=== PATIENT | male | born 2000 | race Caucasian/White ===

== ENCOUNTER 2024-05-31 04:50 | Emergency (ER) | payer MEDICAID, SELFPAY ==
[2024-05-31 04:55] VITALS: BP 149/109; PULSE 77; RESP 20; TEMP 36.5; O2SAT 99; BMI 28.2
--- NOTE | 2024-05-31 04:59 | CRLHL7_ITS ---
For Patients: As a result of the Century Cures Act, medical imaging exams and procedure reports are released immediately into your electronic medical record. You may view this report before your referring provider. If you have questions, please contact your health care provider. INDICATION: Severe abdominal and epigastric pain. COMPARISON: None. TECHNIQUE: CT of the abdomen and pelvis with intravenous contrast. Multiplanar axial, coronal, and sagittal reformats were reconstructed. Contrast: 100 mL Isovue 370. FINDINGS: Lung bases: Normal. Liver: Normal. No mass. Gallbladder and bile ducts: Normal gallbladder. No bile duct dilation. Pancreas: Normal. Spleen: Normal. Adrenal glands: Normal. Kidneys: Normal parenchyma. No cyst or solid mass. No calculi. No urinary tract dilation. Urinary bladder: Empty. Pelvis: No cyst or mass. Vessels: Normal. Bowel: No dilated or inflamed bowel. Normal appendix. Moderate stool burden. Lymph nodes: No adenopathy. Peritoneum: No ascites. Abdominal wall: No hernia. Bones: No fractures. No focal worrisome bone lesions. IMPRESSION: Normal CT of the abdomen and pelvis. Please note that all CT scans at this facility use dose modulation, iterative reconstruction, and/or weight-based dosing when appropriate to reduce radiation dose to as low as reasonably achievable. Dictated by Ely Walker MD @ 05/31/2024 5:43:50 AM (Electronically Signed)
--- NOTE | 2024-05-31 05:02 | ED_ITS ---
HPI - Abdominal Pain General Date Seen: 05/31/24 Chief Complaint: Abdominal Pain Stated Complaint: abdominal pain Time Seen by Provider: 05/31/24 04:54 Source: patient and RN notes reviewed Mode of arrival: ambulatory Limitations: no limitations History of Present Illness HPI narrative: 3-year-old previously healthy gentleman who presents here with acute onset of epigastric pain. This occurred approximately 430 and will come up from sleep. There is no radiation to his back he says it is to primarily in his epigastric region taking a deep breath in makes it worse. He has not vomited but does feel slightly nauseous. Was a little bit constipated earlier yesterday, but normally has no problem with his bowel movements. Did not take any medications for this, came promptly to the hospital. Is not taking any chronic medications not even [id number] medications no. Denies use of alcohol or drugs. No previous history of abdominal operations are chronic abdominal pain. Denies any chest discomfort, shortness of breath, sore throat, blood in his stools, dysuria frequency, back discomfort, fevers chills or sweats. No family history of abdominal pain, or chronic illnesses Related Data Home Medications ?Medication ?Instructions ?Recorded ?Confirmed No Known Home Medications 05/31/24 05/31/24 Allergies Allergy/AdvReac Type Severity Reaction Status Date / Time No Known Drug Allergies Allergy Verified 05/31/24 05:32 Review of Systems Status of ROS Reports: 10 or more systems reviewed and unremarkable except as noted in History and below [facility] Medical History (Updated 05/31/24 @ 05:57 by Sushil Borges MD) No significant past medical history Surgical History (Updated 05/31/24 @ 05:10 by Kurt Herrmann RN) No significant past surgical history Social History Smoking Status: Never smoker Second hand tobacco smoke exposure: No How often do you have a drink containing alcohol: never AUDIT-C Alcohol total score: 0 Non-prescribed substance use: denies use Exam Narrative: Exam Narrative: I find him in room 5, he is in some moderate distress, complaining of pain in his upper abdominal region, oropharynx is normal, no scleral icterus TMs normal, neck is supple full range of motion, chest is clear bilaterally with no wheezing crackles noted heart sounds are normal, no clicks murmurs or gallops his abdomen reveals tenderness in the abdominal region, and I can not really examine him without him being in pain. Bowel sounds appear are quiet. I do not detect CVA and tenderness, I do not detect evidence of a hernia. Moves all extremities independently well, no evidence of any rashes, neurologically intact and upper lower extremities. Const: Vital Signs, click to edit/add: Vital Signs - 24 hr 05/31/24 04:55 05/31/24 05:08 Temperature 97.7 F Pulse Rate [Pulse Oximeter] 77 Respiratory Rate 20 Blood Pressure [Ri ght Upper Arm] 149/109 H Pulse Oximetry 99 99 Oxygen Delivery Me thod Room Air Documenting provider has reviewed patient's vital signs: yes Course Course ED Course: His pain was improved but he is still having colicky pain, I discussed with him that his CT scan showed no evidence of acute abnormality, except that he has a rather large stool burden, this consistent with constipation wears pain is is right across the transverse colon where the majority of his discomfort is. Would recommend given that his UA showed a high specific gravity, he needs to drink more water as this is the 1. Problem I find with people with constipation, recommend that he get some MiraLax to help this also. We went over signs and symptoms of worsening condition he should follow-up with this occur. I did think about whether not this could be related to gastritis, but there is no evidence of any significant thickening of his stomach, and definitely no evidence of free air to suggest perforation no evidence of a any issue with the gallbladder, no biliary dilatation. His LFTs were all normal as is white count. Vital Signs Vital signs: Initial Vital Signs Temperature 97.7 F 05/31/24 04:55 Temperature Source Temporal Artery Scan 05/31/24 04:55 Pulse Rate 77 05/31/24 04:55 Respiratory Rate 20 05/31/24 04:55 Blood Pressure 149/109 H 05/31/24 04:55 Blood Pressure Mean 122 H 05/31/24 04:55 Blood Pressure Position Sitting 05/31/24 04:55 Pulse Oximetry 99 05/31/24 04:55 Oxygen Delivery Method Room Air 05/31/24 04:55 Vital Signs Temperature 97.7 F 05/31/24 04:55 Pulse Rate 77 05/31/24 04:55 Respiratory Rate 20 05/31/24 04:55 Blood Pressure 149/109 H 05/31/24 04:55 Pulse Oximetry 99 05/31/24 04:55 Oxygen Delivery Method Room Air 05/31/24 04:55 Temperature 97.7 F 05/31/24 04:55 Pulse Rate 77 05/31/24 04:55 Respiratory Rate 20 05/31/24 04:55 Blood Pressure 149/109 H 05/31/24 04:55 Pulse Oximetry 99 05/31/24 05:08 Oxygen Delivery Method Room Air 05/31/24 04:55 Medications Administered Medications: Discontinued Medications Generic Name Dose Route Start Last Admin Trade Name Freq PRN Reason Stop Dose Admin Hydromorphone HCl 0.5 mg 05/31/24 04:59 05/31/24 05:06 Hydromorphone 0.5 Mg/0.5 Ml Inj IVP 05/31/24 05:00 0.5 mg ONCE ONE Administration Sodium Chloride 1,000 mls @ 1,000 mls/hr 05/31/24 05:00 05/31/24 05:05 0.9 % Sodium Chloride 1000 Ml IV 05/31/24 05:59 1,000 mls/hr .Q1H PANCHO Administration Ondansetron HCl 4 mg 05/31/24 04:59 05/31/24 05:05 Ondansetron 2 Mg/Ml Inj IVP 05/31/24 05:00 4 mg ONCE ONE Administration MDM - Abdominal Pain MDM Narrative Medical decision making narrative: During this evaluation of this patient I considered multiple differential diagnosis is which included the life-threatening such as appendicitis, aortic aneurysm, mesenteric ischemia, bowel perforation, volvulus, and bowel obstruction. Other differential diagnosis is include but are not limited to cholecystitis, pancreatitis, hepatitis, gastritis, GERD, diverticulitis, peptic ulcer disease, pyelonephritis/UTI, renal colic/stone, testicular torsion as well as other acute scrotal processes, inflammatory bowel disease, as well as other etiologies Medical Records Attestation: I reviewed the patient's medical records. Medical records narrative: Review of his chart shows he has not been here since 2021, he was here with gastroenteritis. Lab Data Attestation: I reviewed the patient's lab results. Labs: Lab Results 05/31/24 05/31/24 Range/Units 05:00 05:02 WBC 7.35 (4.50-11.00) K/uL RBC 5.21 (4.30-5.90) m/uL Hgb 16.1 (13.5-17.5) gm/dL Hct 47.0 (37.0-53.0) % MCV 90 (80-100) fL MCH 31 (26-34) pg MCHC 34 (32-36) gm/dL RDW Coeff of Fannie 12.2 (11.5-15.5) % Plt Count 214 (140-440) K/uL Neut % (Auto) 30.9 L (42.0-72.0) % Lymph % (Auto) 59.6 H (20-44) % Dade % (Auto) 6.9 (0.0-11.0) % Eos % (Auto) 2.3 (0.0-7.0) % Baso % (Auto) 0.3 (0.0-3.0) % Neut # (Auto) 2.30 (1.7-7.0) K/uL Lymph # (Auto) 4.40 H (0.90-2.90) K/uL Dade # (Auto) 0.50 (0.00-0.90) K/UL Eos # (Auto) 0.17 (0.00-0.50) K/uL Baso # (Auto) 0.02 (0.00-0.30) K/uL Abs Immat Gran (auto) 0.00 (0.00-0.30) K/uL Imm/Tot Granulo (auto) 0.0 % Sodium 139 (135-149) mmol/L Potassium 3.8 (3.6-5.1) mmol/L Chloride 106 (96-114) mmol/L Carbon Dioxide 23 (20-32) mmol/L Anion Gap 10 (7-15) mEq/L BUN 17 (5-24) mg/dL Creatinine 1.0 (0.5-1.5) mg/dL Estimated Creat Clear 109.25 Estimated GFR 110 ml/min Glucose 114 (60-115) mg/dL Lactate 1.4 (0.5-1.9) mmol/L Calcium 9.4 (8.4-10.6) mg/dL Total Bilirubin 0.4 (0.1-1.5) mg/dL Direct Bilirubin 0.2 (0.0-0.5) mg/dL AST 27 (12-35) U/L ALT 20 (4-50) U/L Alkaline Phosphatase 96 (40-150) U/L C-Reactive Protein < 0.5 L (0.5-1.0) mg/dL Total Protein 7.9 (6.0-8.3) g/dL Albumin 4.7 (3.3-5.0) g/dL Amylase 79 (18-89) U/L Lipase 76 (23-300) U/L Urine Color Yellow (Yellow) Urine Appearance Clear (Clear) Urine pH 6.0 (5.0-8.5) Ur Specific [place] >= 1.030 (1.000-1.030) Urine Protein Trace A (Negative) Urine Glucose (UA) Negative (Negative) Urine Ketones Negative (Negative) Urine Blood Trace-intact A (Negative) Urine Nitrite Negative (Negative) Urine Bilirubin Negative (Negative) Urine Urobilinogen 0.2 (0.2-1.0) Ur Leukocyte Esterase Negative (Negative) Urine RBC 0-2 (0-2) Urine WBC 2-5 (0-5) Ur Squamous Epith Cells Few (None-Few) Urine Bacteria Few A (None) Urine Mucus Moderate A (None) Urine Opiates Screen Negative (Negative) Ur Oxycodone Screen Negative (Negative) Urine Methadone Screen Negative (Negative) Ur Barbiturates Screen Negative (Negative) U Tricyclic Antidepress Negative (Negative) Ur Phencyclidine Scrn Negative (Negative) Ur Amphetamines Screen Negative (Negative) U Methamphetamines Scrn Negative (Negative) U Benzodiazepines Scrn Negative (Negative) Urine Cocaine Screen Negative (Negative) U Marijuana (THC) Screen POSITIVE A (Negative) Ur Drug Screen Comment See Note Imaging Data CT scan - abdomen: Attestation: I have reviewed the pertinent imaging results. My impression: No evidence of abnormality seen. Radiologist's impression: Patient: HARRIETT TAVAREZ Facility:?[facility] Patient ID:?[id number] Site Patient ID:?[id number]. Site :?[id number] Study:?CT-Abdomen/Pelvis w/ 100cc Isovue 370-05/31/2024 5:35:39 AM Ordering Physician:?Jony Ling Final Report: INDICATION: Severe abdominal and epigastric pain. COMPARISON: None. TECHNIQUE: CT of the abdomen and pelvis with intravenous contrast. Multiplanar axial, coronal, and sagittal reformats were reconstructed. Contrast: 100 mL Isovue 370. FINDINGS: Lung bases: Normal. Liver: Normal. No mass. Gallbladder and bile ducts: Normal gallbladder. No bile duct dilation. Pancreas: Normal. Spleen: Normal. Adrenal glands: Normal. Kidneys: Normal parenchyma. No cyst or solid mass. No calculi. No urinary tract dilation. Urinary bladder: Empty. Pelvis: No cyst or mass. Vessels: Normal. Bowel: No dilated or inflamed bowel. Normal appendix. Moderate stool burden. Lymph nodes: No adenopathy. Peritoneum: No ascites. Abdominal wall: No hernia. Bones: No fractures. No focal worrisome bone lesions. IMPRESSION: Normal CT of the abdomen and pelvis. Please note that all CT scans at this facility use dose modulation, iterative reconstruction, and/or weight-based dosing when appropriate to reduce radiation dose to as low as reasonably achievable. Dictated by Ely Wakler MD @ 05/31/2024 5:43:50 AM (Electronic Signature) Discharge Plan Discharge Clinical Impression: Abdominal pain, Constipation Patient Disposition: Home w/ Parent or Adult Condition: Stable Instructions: Constipation (ED), Abdominal Pain (ED) Additional Instructions: Laboratory work was all reassuring no evidence of any liver, elevated white count, or other issue. It certainly seems with here CT that your constipated. The only thing I can tell you is on your urine test that it seems like your down in her fluids a little bit. He did drink more water, and I would use some MiraLax 1 cap full with 20 oz of water, do this twice a day until you get good returns. Return back if worsening pain fevers chills nausea vomiting. Or other issues. Activity Level: Light activity Discharge Diet: Regular Prescriptions: No Action No Known Home Medications Stand Alone Forms: [employer] Info Instructions
[2024-05-31] MEDS: 0.9 % SODIUM CHLORIDE 1000 ml 1,000 ML IV (05:05)
[2024-05-31] MEDS: ONDANSETRON 2 MG/ML inj 4 MG IVP (05:05)
[2024-05-31] MEDS: HYDROmorphone 0.5 mg/0.5 ml inj IVP (05:06)
[2024-05-31 05:08] VITALS: O2SAT 99
[2024-05-31 05:08] LABS: Lactate* 1.4 mmol/L (0.5-1.9)
[2024-05-31 05:09] LABS: Basophils Absolute Auto 0.02 K/uL (0.00-0.30); Basophils Percent Auto 0.3 % (0.0-3.0); Eosinophils Absolute Auto 0.17 K/uL (0.00-0.50); Eosinophils Percent Auto 2.3 % (0.0-7.0); Hemoglobin* 16.1 gm/dL (13.5-17.5); Lymphocytes Percent Auto 59.6 % (20-44); Mean Corpuscular HGB Conc 34 gm/dL (32-36); Mean Corpuscular Hemoglobin 31 pg (26-34); Mean Corpuscular Volume 90 fL (80-100); Monocytes Percent Auto 6.9 % (0.0-11.0); Neutrophils Percent Auto 30.9 % (42.0-72.0); Platelet Count* 214 K/uL (140-440); RDW Coefficient of Variation % 12.2 % (11.5-15.5); Red Blood Count 5.21 m/uL (4.30-5.90); White Blood Count* 7.35 K/uL (4.50-11.00)
[2024-05-31 05:13] LABS: Appearance Urine Clear (Clear); Bilirubin Urine Negative (Negative); Blood Urine Trace-intact (Negative); Color Urine Yellow (Yellow); Glucose Urine Negative (Negative); Ketones Urine Negative (Negative); Leukocyte Esterase Urine Negative (Negative); Nitrite Urine Negative (Negative); Protein Urine Trace (Negative); Specific Gravity Urine >= 1.030 (1.000-1.030); Urobilinogen Urine 0.2 (0.2-1.0)
[2024-05-31 05:21] LABS: Amphetamine Screen Urine Negative (Negative); Barbiturate Screen Urine Negative (Negative); Benzodiazepines Screen Urine Negative (Negative); Cannabinoid Screen Urine POSITIVE (Negative); Cocaine Screen Urine Negative (Negative); Methadone Screen Urine Negative (Negative); Methamphetamines Screen Urine Negative (Negative); Opiate Screen Urine Negative (Negative); Oxycodone Screen Urine Negative (Negative); Phencyclidine Screen Urine Negative (Negative); Tricyclic Antidepressant Urine Negative (Negative)
[2024-05-31 05:23] LABS: Slide Review Reflex No
[2024-05-31 05:24] LABS: Bacteria Urine Few; Mucus Urine Moderate; RBC Urine 0-2 (0-2); Squamous Epithelial Cell Urine Few (None-Few)
[2024-05-31 05:26] LABS: Albumin* 4.7 g/dL (3.3-5.0); Chloride* 106 mmol/L (96-114)
[2024-05-31 05:27] LABS: Potassium* 3.8 mmol/L (3.6-5.1); Sodium* 139 mmol/L (135-149)
[2024-05-31 05:29] LABS: Amylase* 79 U/L (18-89); Est. Creatinine Clearance* 109.25; Estimated Glomerular Filt Rate 110 ml/min
[2024-05-31 05:30] LABS: Alanine Aminotransferase* 20 U/L (4-50); Alkaline Phosphatase* 96 U/L (40-150); Anion Gap 10 mEq/L (7-15); Aspartate Amino Transferase* 27 U/L (12-35); Bilirubin Direct* 0.2 mg/dL (0.0-0.5); Bilirubin Total* 0.4 mg/dL (0.1-1.5); Blood Urea Nitrogen* 17 mg/dL (5-24); Calcium* 9.4 mg/dL (8.4-10.6); Carbon Dioxide* 23 mmol/L (20-32); Glucose* 114 mg/dL (60-115); Lipase* 76 U/L (23-300); Total Protein* 7.9 g/dL (6.0-8.3)
[2024-05-31 05:34] LABS: C Reactive Protein* < 0.5 mg/dL (0.5-1.0)
--- OUTSIDE RECORDS SUMMARY | 2024-05-31 06:00 | XMS_ITS | Clinical Summary ---
Author Organization [place] Address [address] [place] [id number] Care Team Providers Care Retail Helper Name Role Phone Clinic, [facility] Primary Care Provider Allergies No known active allergies Medications No known medications Social History Tobacco Use Types Packs/Day Years Used Date Smoking Tobacco: Never Assessed Adolescent Education Answer Date Record ed Getting School Help Needed Not on file 12/08 Sex and Gender Information Value Date Recorded Sex Assigned at Not on file Legal Sex Male 8:30 PM CDT Gender Identity Not on file Sexual Orientation Not on file Last Filed Vital Signs Vital Sign Reading Time Taken Comments Blood Pressure 137/81 12/09/2023 10:32 PM CDT Pulse 75 12/09/2023 10:32 PM CDT Temperature 36.9 C (98.4 F) 12/09/2023 8:53 PM CDT Respiratory Rate 16 12/09/2023 8:53 PM CDT Oxygen Saturation 98% 12/09/2023 10:32 PM CDT Inhaled Oxygen Concentration - - Weight 86.2 kg (190 lb) 12/09/2023 8:53 PM CDT Height 170.2 cm (5' 7) 12/09/2023 8:53 PM CDT Body Mass Index 29.76 12/09/2023 8:53 PM CDT Plan of Treatment Health Maintenance Due Date Last Done Comments ADVANCE CARE PLANNING 2002 ANNUAL REVIEW OF HM ORDERS 2002 HIV SCREENING 2017 HEPATITIS C SCREENING 2020 YEARLY PREVENTIVE VISIT 03/17/2021 03/17/2020 PHQ-2 (once per calendar year) 2023 COVID-19 Vaccine ( season) 2024 12/26/2020, 11/27/2020 INFLUENZA VACCINE (#1) 2024 0, 05/12/2017, 07/03/2009, Additional history exists DTAP/TDAP/TD IMMUNIZATION (7 - Td or Tdap) 12/13/2024 12/13/2014, 09/23/2007, 03/31/2006, Additional history exists RSV VACCINE (1 - 1-dose 75+ series) 2077 HEPATITIS B IMMUNIZATION Completed 004, 09/02/2003, 06/16/2003, Additional history exists Pneumococcal Vaccine: Pediatrics (0 to 5 Years) and At-Risk Patients (6 to 64 Years) Aged Out 09/02/2003, 06/16/2003, 02/16/2003 No longer eligible based on patient's age to complete this topic HPV IMMUNIZATION Completed 03/17/2020, 12/13/2014 MENINGITIS IMMUNIZATION Completed 03/17/2020, 12/13 RSV MONOCLONAL ANTIBODY Aged Out No l onger eligible based on patient's age to complete this topic Insurance [facility] Care Teams Retail Helper Relationship Specialty Start Date End Date [address] [address] PCP - General 12/09/23
--- OUTSIDE RECORDS SUMMARY | 2024-05-31 06:00 | XMS_ITS | Clinical Summary ---
Author Organization [facility] Address [place], [place] [address] Care Team Providers Care Station Jailer Name Role Phone Pcp, No Primary Care Provider Unavailabl e Allergies No known active allergies Medications Medication Sig Dispensed Refills Start Date End Date Status ibuprofen (ADVIL; MOTRIN) 800 mg tabletIndications:Nelsy le injury, right, initial encounter Take 1 Tablet (800 mg) by mouth 3 times daily if needed for Pain. 60 Tablet 08/18/2022 Active CrutchIndications:Nelsy le injury, right, initial encounter For home use. 2 Each 08/18/2022 Active Active Problems No known active problems Immunizations Name Administration Dates Next Due AMB Influenza, IIV3 (Age >=3 years)(Flu Clinic Only) 06/19/2009 COVID-19 vaccine (Moderna 100mcg/0.5mL) KAYLI CAMPOS 12/26/2020,11/27/2020 DTP 03/31/2006, 4,06/16/2003,02/16 DTaP 09/23/2007,03/31/2006 QHlA-IzeA-ZNY (Pediarix) 09/02/2003,06/16/2003,0 02/16/2003 HIB HbOC (HibTITER) 09/02/2003,06/16/2003,2002 HIB PRP-OMP (PedvaxHIB) 09/02/2003,06/16/2003, HPV 9 (Gardasil 9) 03/17/2020 Hepatitis A (Peds) 03/17/2020,03/31/2006 Hepatitis B (Peds) 09/02/2003,06/16/2003, 003 Human Papilloma Virus Vaccine 12/13/2014 Inactivated Polio Vaccine 09/23/2007,,06/16/2003,02/16 Influenza A (H1N1), Inactivated 07/03/2009,05/26 Influenza A (H1N1), Inactiva gilbert (Age >=3 Years) 07/03/2009 Influenza, IIV3 (Age 6-35 mos) 06/19/2009 Influenza, IIV4 03/17/2020,05/12/2017 MENINGOCOCCAL VACCINE 2 VIAL [id number] (MENVEO) 03/17/2020,12/13/2014 MMR 09/23/2007,10/14/2003,09/02/2003 Pneumococcal conj 7-Valent (Prevnar 7) 4,06/16/2003,02/16/2003 Tdap 12/13/2014 Varicella Vaccine 09/23/2007,10/14/2003 Family History Medical History Relation Name Comments Cancer Other uterus, materna l great gm Relation Name Status Comments Other Social History Tobacco Use Types Packs/Day Years Used Date Smoking Tobacco: Never Smokeless Tobacco: Never Tobacco Cessation:Counseling Given: Yes Alcohol Use Standard Drinks/Week Comments No 0 (1 standard drink = 0.6 oz pur e alcohol) PHQ-2 Answer Date Recorded PHQ-2 TOTAL SCORE 0 03/17/2020 Social Connections Answer Date Recorded Frequency of Communication with Friends and Fami ly Not on file 06/28/2021 Financial Resource Strain Answer Date R ecorded Difficulty of Paying Living Expenses Not on file 06/28/2021 Difficulty of Paying Living Expenses Not on file 06/28/2021 Sex and Gender Information Value Date Recorded Sex Assigned at Not on file Gender Identity Not on file Sexual Orientation Not on file Obstetrics History Last Filed Vital Signs Vital Sign Reading Time Taken Comments Blood Pressure 118/73 08/18/2022 7:21 PM MARKET RISK MANAGER Pulse 71 08/18/2022 7:21 PM MARKET RISK MANAGER Temperature 36.6 C (97.9 F) 08/18/2022 7:21 PM MARKET RISK MANAGER Respiratory Rate 16 08/18/2022 7:21 PM MARKET RISK MANAGER Oxygen Saturation 97% 08/18/2022 7:21 PM MARKET RISK MANAGER Inhaled Oxygen Concentration - - Weight 77.1 kg (170 lb) 02/06/2021 4:23 PM CDT Height 169.9 cm (5' 6.89) 01/10/2021 4:43 PM CD T Body Mass Index - - Plan of Treatment Health Maintenance Due Date Last Done Comments HIV for age 15-65 2017 Hepatitis C screening for age 18-79 2020 Depression screening for age 12+ 03/17/2021 03/17/2020, 11/26/2018, 11/09/2018, Additional history exists BMI (ht and wt on same day) for age 18+ 01/10/2022 01/10/2021 COVID-19 vaccine series ( season) 2024 12/26/2020, 11/27/2020 Influenza for age 9-49 03/07/2024 , 05/12/2017, 07/03/2009, Additional history exists Tetanus booster 12/13/2024 12/13/2014 Pneumococcal series for age 6-64 Aged Out 09/02/2003, 06/16/2003, 02/16/2003 No longer eligible based on patient's age to complete this topic Tdap Completed 12/13/2014 HPV series for age 9-26 Completed 03/17/2020, 12/13 Meningococcal series for age 11-21 Completed 03/17/2020, 12/13/2014 Advance Directives * Full Code (Latest Code Status on File) Date Activated Date Inactivated Comments 02/12/2007 9:08 AM 02/12/2007 2:15 PM Care Teams Station Jailer Relationship Specialty Start Date End Date Pcp, No . PCP - General 08/10/13
--- OUTSIDE RECORDS SUMMARY | 2024-05-31 06:00 | XMS_ITS | Referral Summary ---
Author Organization [place] Address [address] [place] [address] Care Team Providers Care Associate Principal Name Role Phone Clinic, [facility] Primary Care Provider Allergies No known active [...] 12/09/2023 8:53 PM CDT Plan of Treatment Not on file Insurance [employer] [facility] [place] [address] [facility] Care Teams Associate Principal Relationship Specialty Start Date End Date [address] [address] PCP - General 12/09/23
[2024-05-31 06:13] VITALS: BP 135/84; PULSE 77; RESP 20; TEMP 36.5; O2SAT 99
[2024-05-31] MEDS: KETOROLAC 30 MG/ML inj IM (06:16)
[2024-05-31 06:30] VITALS: BP 135/84; PULSE 77; RESP 20; TEMP 36.5
== END 2024-05-31 06:31 | disposition home or self-care (01) ==
LOC: ED 05:59
PROVIDERS: Emergency Provider Family Medicine
DX: R10.9 Unspecified abdominal pain (principal); K59.00 Constipation, unspecified
CPT/HCPCS: 36415; 74177; 80048; 80076; 80306; 81001; 82150; 83605; 83690; 85025; 86140; 87086; 94761; 96361; 96372; 96374; 99284; 99285; J1171; J1885; J2405; J7030; Q9967

== ENCOUNTER 2024-07-19 13:08 | Outpatient (CLI) | payer MEDICAID, SELFPAY ==
[2024-07-19 23:28] LABS: Chlamydia DNA Amplified* NOT DETECTED (No Detected); GC DNA Amplified* NOT DETECTED (No Detected)
== END 2024-07-19 13:09 | disposition home or self-care (01) ==
LOC: NFLDUCREF 13:10
PROVIDERS: Visit Provider Nurse Practitioner
DX: Z11.3 Encounter for screening for infections with a predominantly sexual mode of transmission (principal)
CPT/HCPCS: 87491; 87591

== ENCOUNTER 2025-03-13 03:59 | Outpatient (CLI) | payer MEDICAID, SELFPAY | END 2025-03-13 04:00 | disposition home or self-care (01) | LOC: AMB 03-17 09:57 | PROVIDERS: Visit Provider Internal Medicine | DX: R41.82 Altered mental status, unspecified (principal); F91.9 Conduct disorder, unspecified | CPT/HCPCS: A0425; A0427 ==

== ENCOUNTER 2025-03-13 04:45 | Emergency (ER) | payer SELFPAY ==
[2025-03-13] VITALS (13 sets, daily range): BP systolic 100–140; BP diastolic 52–85; PULSE 78–95; RESP 16–20; TEMP 36.9; O2SAT 95–99; BMI 25.8
[2025-03-13 05:23] LABS: Hematocrit* 45.6 % (37.0-53.0); Hemoglobin* 15.9 gm/dL (13.5-17.5); Immature Granulocytes Abs Auto 0.01 K/uL (0.00-0.30); Immature Granulocytes Pct Auto 0.1 %; Mean Corpuscular HGB Conc 35 gm/dL (32-36); Mean Corpuscular Hemoglobin 31 pg (26-34); Mean Corpuscular Volume 89 fL (80-100); RDW Coefficient of Variation % 12.1 % (11.5-15.5); Red Blood Count* 5.13 m/uL (4.30-5.90); White Blood Count* 8.32 K/uL (4.50-11.00)
--- NOTE | 2025-03-13 05:26 | CRLHL7_ITS ---
For Patients: As a result of the Century Cures Act, medical imaging exams and procedure reports are released immediately into your electronic medical record. You may view this report before your referring provider. If you have questions, please contact your health care provider. INDICATION: Injury COMPARISON: None TECHNIQUE: CT examination of the head was performed as axial sections without intravenous contrast. Images were obtained from the vertex of the skull through the skull base. Please note that all CT scans at this facility use dose modulation, iterative reconstruction, and/or weight-based dosing when appropriate to reduce radiation dose to as low as reasonably achievable. FINDINGS: The brain shows no sign of mass lesion, mass effect, hemorrhage, or edema. The ventricles and sulci are normal in appearance for the patient`s age. The visualized portions of the orbits are normal in appearance. The osseous structures are normal in their appearance with no sign of abnormality in the skull base or calvarium. IMPRESSION: Normal unenhanced head CT. Please note that all CT scans at this facility use dose modulation, iterative reconstruction, and/or weight-based dosing when appropriate to reduce radiation dose to as low as reasonably achievable. Dictated by Alok Hankins MD @ 03/13/2025 6:15:27 AM (Electronically Signed)
--- NOTE | 2025-03-13 05:26 | CRLHL7_ITS ---
For Patients: As a result of the Century Cures Act, medical imaging exams and procedure reports are released immediately into your electronic medical record. You may view this report before your referring provider. If you have questions, please contact your health care provider. INDICATION: Injury COMPARISON: None TECHNIQUE: CT examination of the cervical spine is performed without contrast using spiral technique. Thin axial, sagittal and coronal reconstructions were made. Please note that all CT scans at this facility use dose modulation, iterative reconstruction, and/or weight-based dosing when appropriate to reduce radiation dose to as low as reasonably achievable. FINDINGS: : There is straightening which is usually due to muscle spasm or positioning. The height of the vertebral bodies is normal. The caliber of the intervertebral disc spaces is normal. No visible fracture, dislocation or destructive process. IMPRESSION: No acute fracture, dislocation or destructive process. Straightening which is likely due to muscle spasm. Please note that all CT scans at this facility use dose modulation, iterative reconstruction, and/or weight-based dosing when appropriate to reduce radiation dose to as low as reasonably achievable. Dictated by Alok Hankins MD @ 03/13/2025 6:18:20 AM (Electronically Signed)
[2025-03-13 05:31] LABS: Lymphocytes Absolute Auto 1.30 K/uL (0.90-2.90); Slide Review Reflex No
[2025-03-13 05:31] LABS: Cannabinoid Screen Urine POSITIVE (Negative); Methamphetamines Screen Urine Negative (Negative); Tricyclic Antidepressant Urine Negative (Negative)
[2025-03-13 05:35] LABS: Albumin* 5.2 g/dL (3.3-5.0); Chloride* 111 mmol/L (96-114); Sodium* 146 mmol/L (135-149)
[2025-03-13 05:36] LABS: Potassium* 4.2 mmol/L (3.6-5.1)
[2025-03-13 05:38] LABS: Alanine Aminotransferase* 24 U/L (4-50); Alkaline Phosphatase* 63 U/L (40-150); Anion Gap 16 mEq/L (7-15); Aspartate Amino Transferase* 45 U/L (12-35); Bilirubin Total* 0.6 mg/dL (0.1-1.5); Blood Urea Nitrogen* 18 mg/dL (5-24); Calcium* 9.2 mg/dL (8.4-10.6); Carbon Dioxide* 19 mmol/L (20-32); Creatinine* 1.0 mg/dL (0.5-1.5); Est. Creatinine Clearance* 108.33; Estimated Glomerular Filt Rate 109 ml/min; Glucose* 115 mg/dL (60-115); Total Protein* 8.7 g/dL (6.0-8.3)
[2025-03-13 05:39] LABS: Ethanol* 0.20 % (0.01-0.03)
[2025-03-13 05:43] LABS: Acetaminophen* < 10.0 ug/mL (10.0-30.0); Salicylate* < 1.0 mg/dL (1.0-10)
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
--- OUTSIDE RECORDS SUMMARY | 2025-03-13 07:48 | XMS_ITS | Clinical Summary ---
Author Organization [facility] Address [address] [place] [id number] Care Team Providers Care Inside Sales Manager Name Role Phone Pcp, No Primary Care Provider Unavailabl e Allergies No known active allergies Medications ibuprofen (ADVIL; MOTRIN) 800 mg tabletIndication s:Ankle injury, right, initial encounter Take 1 Tablet (800 mg) by mouth 3 times daily if needed for Pain. 60 Tablet 08/18/2022 Active CrutchIndication s:Ankle injury, right, initial encounter For home use. 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 Gender Identity Not on file Sexual Orientation Not on file Obstetrics History Last Filed Vital Signs Vital Sign Reading Time Taken Comments Blood Pressure 118/73 08/18/2022 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 Pulse 71 08/18/2022 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 Temperature 36.6 C (97.9 F) 08/18/2022 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 Respiratory Rate 16 08/18/2022 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 Oxygen Saturation 97% 08/18/2022 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 Inhaled Oxygen Concentration - - Weight 77.1 kg (170 lb) 02/06/2021 4:23 PM CDT Height 169.9 cm (5' 6.89) 01/10/2021 4:43 PM CD T Body Mass Index - - Plan of Treatment Health Maintenance Due Date Last Done Comments Depression screening for age 12+ 2014 HIV for age 15-65 2017 Hepatitis C screening for age 18-79 2020 BMI (ht and wt on same day) for age 18+ 01/10/2022 01/10/2021 Tetanus booster 12/13/2024 12/13/2014 COVID-19 vaccine series (2024- season) 2025 12/26/2020, 11/27/2020 Influenza Vaccine (#1) 2025 , 05/12/2017, 06/19/2009, Additional history exists RSV vaccine for adults or (1 - 1-dose 75+ series) 2077 Hepatitis B series for 19+ Completed 09/02, 09/02/2003, 06/16/2003, Additional history exists Pneumococcal series for age 6-49 Aged Out 09/02/2003, 06/16/2003, 02/16/2003 No longer eligible based on patient's age to complete this topic HPV series for age 9-45 Completed 03/17/2020, 12/13 Insurance [facility] Advance Directives * Full Code (Latest Code Status on File) Date Activated Date Inactivated Comments 02/12/2007 9:08 AM 02/12/2007 2:15 PM Care Teams Inside Sales Manager Relationship Specialty Start Date End Date Pcp, No . PCP - General 08/10/13
--- OUTSIDE RECORDS SUMMARY | 2025-03-13 07:48 | XMS_ITS | Clinical Summary ---
Author Organization [facility] Address [address] [place] [id number] Care Team Providers Care Rn Urgent Care Name Role Phone [facility], [facility] Primary Care Provider Allergies No known active [...] OF HM ORDERS 2002 HIV SCREENING 2017 MENINGITIS B VACCINE (1 of 2 - Standard) 2018 HEPATITIS C SCREENING 2020 YEARLY PREVENTIVE VISIT 03/17/2021 03/17/2020 PHQ-2 (once per calendar year) 2024 DTAP/TDAP/TD VACCINE (7 - Td or Tdap) 12/13/2024 12/13/2014, 09/23/2007, 03/31/2006, Additional history exists COVID-19 VACCINE ( season) 2025 12/26/2020, 11/27/2020 INFLUENZA VACCINE (#1) 2025 0, 05/12/2017, 07/03/2009, Additional history exists ZOSTER VACCINE (1 of 2) 2052 HEPATITIS B VACCINE Completed 09/02/2003, 09/02/2003, 06/16/2003, Additional history exists PNEUMOCOCCAL VACCINE: PEDIATRICS (0 to 5 YEARS) AND AT-RISK PATIENTS (6 to 49 YEARS) Aged Out 09/02/2003, 06/16/2003, 02/16/2003 No longer eligible based on patient's age to complete this topic HPV VACCINE Completed 03/17/2020, 12/13/2014 MENINGITIS VACCINE Completed 03/17/2020, 12/13/2014 Care Teams Rn Urgent Care Relationship Specialty Start Date End Date [facility], [address] [address] PCP - General 12/09/23
== END 2025-03-13 10:00 | disposition home or self-care (01) ==
PROVIDERS: Emergency Provider Internal Medicine
DX: R41.82 Altered mental status, unspecified (principal)
CPT/HCPCS: 36415; 70450; 72125; 80053; 80143; 80179; 80306; 82077; 85025; 99283; 99284